=== PATIENT | female | born 2000 | race Caucasian/White ===

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

== ENCOUNTER 2018-01-22 15:19 | Emergency (ER) | payer OTHER ==
[~2018-01-22] VITALS: Ht 165.1 cm; Wt 90.7 kg
[~2018-01-22 15:19] MED LIST changes: +IBUPROFEN 800800 MG PO
[2018-01-22 16:15] LABS: URINE BILIRUBIN NEGATIVE (Negative); URINE BLOOD TRACE (Negative); URINE CLARITY CLEAR; URINE COLOR YELLOW; URINE GLUCOSE-RANDOM NEGATIVE (Negative); URINE KETONES NEGATIVE (Negative); URINE LEUKOCYTES-REFLEX TRACE (Negative); URINE NITRITE-REFLEX NEGATIVE (Negative); URINE PROTEIN NEGATIVE (Negative); URINE UROBILINOGEN 0.2 E.U./dl (0.2-1.0)
[2018-01-22 16:26] LABS: BACTERIA-REFLEX 1-9 Few /HPF (None Seen); CASTS None Seen /LPF (None Seen); MUCUS None Seen strn/LPF (None Seen); SQUAMOUS 0-3 Few /LPF (0-3); URINE RBC None Seen /HPF (0-2); URINE WBC-REFLEX 0-5 Rare /HPF (0-5)
[2018-01-22 17:18] LABS: ABSOLUTE LYMPHOCYTES 1.6 thou/uL (0.8-5.3); ABSOLUTE MONOCYTES 0.5 thou/uL (0.0-1.2); ABSOLUTE NEUTROPHILS 6.5 thou/uL (1.6-8.1); BASOPHILS 0.4 %; EOSINOPHILS 0.4 %; HEMATOCRIT 39.3 % (37.0-47.0); HEMOGLOBIN 12.6 gm/dL (12.0-15.0); LYMPHOCYTES 18.8 %; MCH 25.2 pg (26.0-34.0); MCHC 32.1 g/dL (28.0-37.0); MCV 78.5 fL (80.0-100.0); MONOCYTES 5.5 %; MPV 8.6 fl. (7.2-11.1); NUCLEATED RBCS 0 /100WBC; PLATELET COUNT* 276 thou/uL (150-400); POLYS 74.9 %; RBC 5.01 mil/uL (4.20-5.00); RDW-CV 15.3 % (10.5-14.5); WBC 8.7 thou/uL (4.0-11.0)
[2018-01-22 17:23] LABS: CALCIUM 8.9 mg/dL (8.5-10.1); CREATININE 0.8 mg/dL (0.6-1.3); POTASSIUM 4.1 mmol/L (3.5-5.1)
[2018-01-22 17:28] LABS: ALBUMIN 3.2 g/dL (3.4-5.0); TOTAL BILIRUBIN 0.4 mg/dL (<0.1-1.0); TOTAL PROTEIN 7.2 g/dL (6.4-8.2)
[2018-01-22] MEDS ORDERED: BACTRIM DS TAB1 EACH PO (18:09)
[2018-01-22 18:20] VITALS: BP 121/75
== END 2018-01-22 18:21 | disposition home or self-care (01) ==
LOC: M.ERS 15:19
PROVIDERS: Nurse Practitioner Family
DX: N30.90 Cystitis, unspecified without hematuria (principal)

== ENCOUNTER 2018-07-21 19:59 | Emergency (ER) | payer OTHER ==
[~2018-07-21] VITALS: Ht 165.1 cm; Wt 86.2 kg
[~2018-07-21 19:59] MED LIST changes: +BACTRIM DS TAB1 EACH PO
[2018-07-21 20:48] LABS: ABSOLUTE LYMPHOCYTES 1.7 thou/uL (0.8-5.3); ABSOLUTE MONOCYTES 0.6 thou/uL (0.0-1.2); ABSOLUTE NEUTROPHILS 4.5 thou/uL (1.6-8.1); BASOPHILS 0.6 %; EOSINOPHILS 0.6 %; HEMATOCRIT 36.7 % (37.0-47.0); HEMOGLOBIN 12.2 gm/dL (12.0-15.0); LYMPHOCYTES 24.6 %; MCH 25.9 pg (26.0-34.0); MCHC 33.3 g/dL (28.0-37.0); MCV 77.8 fL (80.0-100.0); MONOCYTES 8.3 %; MPV 8.8 fl. (7.2-11.1); NUCLEATED RBCS 0 /100WBC; PLATELET COUNT* 226 thou/uL (150-400); POLYS 65.9 %; RBC 4.72 mil/uL (4.20-5.00); RDW-CV 14.8 % (10.5-14.5); WBC 6.8 thou/uL (4.0-11.0)
[2018-07-21 20:55] LABS: URINE BILIRUBIN NEGATIVE (Negative); URINE BLOOD NEGATIVE (Negative); URINE CLARITY CLEAR; URINE COLOR YELLOW; URINE GLUCOSE-RANDOM NEGATIVE (Negative); URINE KETONES 1+ (Negative); URINE LEUKOCYTES-REFLEX NEGATIVE (Negative); URINE NITRITE-REFLEX NEGATIVE (Negative); URINE PROTEIN TRACE (Negative); URINE SPECIFIC GRAVITY 1.025 (1.005-1.030); URINE UROBILINOGEN 0.2 E.U./dl (0.2-1.0)
[2018-07-21 20:56] LABS: CREATININE 0.9 mg/dL (0.6-1.3); POTASSIUM 3.6 mmol/L (3.5-5.1)
[2018-07-21 21:00] LABS: ALBUMIN 3.5 g/dL (3.4-5.0); TOTAL BILIRUBIN 0.5 mg/dL (<0.1-1.0); TOTAL PROTEIN 7.3 g/dL (6.4-8.2)
[2018-07-21] MEDS ORDERED: ZOFRAN4 MG PO (22:57)
[2018-07-21] MEDS ORDERED: BENTYL 20 MG TA20 M1 PO (22:57)
[2018-07-21 23:08] VITALS: BP 109/65
== END 2018-07-21 23:17 | disposition home or self-care (01) ==
LOC: M.ERS 19:59
PROVIDERS: Nurse Practitioner Family
DX: K52.9 Noninfective gastroenteritis and colitis, unspecified (principal); R51 Headache

== ENCOUNTER 2018-09-28 22:05 | Emergency (ER) | payer OTHER ==
[~2018-09-28] VITALS: Ht 165.1 cm; Wt 86.2 kg
[~2018-09-28 22:05] MED LIST changes: +BENTYL 20 MG TA20 M1 PO; +ZOFRAN4 MG PO
[2018-09-28] MEDS ORDERED: PREDNISONE 10 M10 M1 PO (22:47)
[2018-09-28 23:04] VITALS: BP 154/97
== END 2018-09-28 23:04 | disposition home or self-care (01) ==
LOC: M.ERS 22:05
DX: L23.7 Allergic contact dermatitis due to plants, except food (principal); J02.9 Acute pharyngitis, unspecified

== ENCOUNTER 2018-10-23 23:05 | Emergency (ER) | payer OTHER ==
[~2018-10-23] VITALS: Ht 165.1 cm; Wt 83.9 kg
[2018-10-23] MEDS ORDERED: IRON325 PO (23:16)
[2018-10-23] MEDS ORDERED: ACETAMINOPHEN-1 EAC1 PO (23:59)
[2018-10-23] MEDS ORDERED: AMOX TR-K CLV1 EAC3 PO (23:59)
[2018-10-23] MEDS ORDERED: MAGIC MOUTHWASH PO (23:59)
[2018-10-24 00:15] VITALS: BP 117/82
[2018-10-25] MEDS ORDERED: HYDROCODONE-ACE15 ML PO (01:03)
== END 2018-10-24 00:15 | disposition home or self-care (01) ==
LOC: M.ERS 23:05
DX: J02.9 Acute pharyngitis, unspecified (principal)

== ENCOUNTER 2018-10-24 23:35 | Emergency (ER) | payer OTHER ==
[~2018-10-24] VITALS: Ht 165.1 cm; Wt 83.9 kg
[~2018-10-24 23:35] MED LIST changes: +AMOX TR-K CLV1 EAC3 PO; +MAGIC MOUTHWASH PO
[2018-10-25 00:07] LABS: HEMATOCRIT 40.2 % (37.0-47.0); HEMOGLOBIN 12.9 gm/dL (12.0-15.0); MCH 25.7 pg (26.0-34.0); MCHC 32.2 g/dL (28.0-37.0); MCV 79.8 fL (80.0-100.0); MPV 8.2 fl. (7.2-11.1); NUCLEATED RBCS 0 /100WBC; PLATELET COUNT* 259 thou/uL (150-400); RBC 5.03 mil/uL (4.20-5.00); RDW-CV 15.8 % (10.5-14.5); WBC 11.5 thou/uL (4.0-11.0)
[2018-10-25 00:14] LABS: CALCIUM 8.7 mg/dL (8.5-10.1); POTASSIUM 3.7 mmol/L (3.5-5.1)
[2018-10-25 00:19] LABS: ALBUMIN 2.9 g/dL (3.4-5.0); TOTAL BILIRUBIN 0.3 mg/dL (<0.1-1.0); TOTAL PROTEIN 7.7 g/dL (6.4-8.2)
[2018-10-25 00:38] LABS: ABSOLUTE LYMPHOCYTES 0.5 thou/uL (0.8-5.3); ABSOLUTE MONOCYTES 0.7 thou/uL (0.0-1.2); ABSOLUTE NEUTROPHILS 10.4 thou/uL (1.6-8.1)
[2018-10-25 00:39] LABS: PLATELET ESTIMATE ADEQUATE
[2018-10-25] MEDS ORDERED: HYDROCODONE-ACE15 ML PO (01:03)
[2018-10-25 01:20] VITALS: BP 115/71
== END 2018-10-25 01:20 | disposition home or self-care (01) ==
LOC: M.ERS 23:35
PROVIDERS: Personal Emergency Response Attendant
DX: J36 Peritonsillar abscess (principal); Z98.890 Other specified postprocedural states

== ENCOUNTER 2019-07-29 23:09 | Emergency (ER) | payer OTHER ==
[~2019-07-29] VITALS: Ht 170.2 cm; Wt 65.8 kg
[~2019-07-29 23:09] MED LIST changes: +HYDROCODONE-ACE15 ML PO
[2019-07-30 00:03] LABS: ABSOLUTE BASOPHILS 0.1 thou/uL (0.0-0.2); ABSOLUTE EOSINOPHILS 0.1 thou/uL (0.0-0.7); ABSOLUTE LYMPHOCYTES 2.1 thou/uL (0.8-5.3); ABSOLUTE NEUTROPHILS 10.6 thou/uL (1.6-8.1); BASOPHILS 0.4 %; EOSINOPHILS 0.4 %; HEMOGLOBIN 12.9 gm/dL (12.0-15.0); LYMPHOCYTES 15.2 %; MCH 27.5 pg (26.0-34.0); MCHC 33.2 g/dL (28.0-37.0); MCV 82.7 fL (80.0-100.0); MONOCYTES 7.4 %; MPV 8.9 fl. (7.2-11.1); NUCLEATED RBCS 0 /100WBC; PLATELET COUNT* 257 thou/uL (150-400); POLYS 76.6 %; RBC 4.71 mil/uL (4.20-5.00); RDW-CV 15.9 % (10.5-14.5); WBC 13.9 thou/uL (4.0-11.0)
[2019-07-30 00:13] LABS: URINE BILIRUBIN NEGATIVE (Negative); URINE BLOOD 1+ (Negative); URINE CLARITY CLEAR; URINE COLOR YELLOW; URINE GLUCOSE-RANDOM NEGATIVE (Negative); URINE KETONES NEGATIVE (Negative); URINE LEUKOCYTES-REFLEX NEGATIVE (Negative); URINE NITRITE-REFLEX NEGATIVE (Negative); URINE PROTEIN NEGATIVE (Negative); URINE SPECIFIC GRAVITY 1.015 (1.005-1.030); URINE UROBILINOGEN 0.2 E.U./dl (0.2-1.0)
[2019-07-30 00:17] LABS: CALCIUM 8.1 mg/dL (8.5-10.1); CREATININE 1.2 mg/dL (0.6-1.3); POTASSIUM 3.4 mmol/L (3.5-5.1)
[2019-07-30 00:21] LABS: ALBUMIN 2.9 g/dL (3.4-5.0); TOTAL BILIRUBIN 0.3 mg/dL (<0.1-1.0); TOTAL PROTEIN 6.8 g/dL (6.4-8.2)
[2019-07-30 00:45] LABS: CASTS None Seen /LPF (None Seen); SQUAMOUS >10 Many /LPF (0-3); URINE RBC 0-2 Rare /HPF (0-2); URINE WBC-REFLEX 0-5 Rare /HPF (0-5)
[2019-07-30 00:46] LABS: CRYSTALS None Seen /LPF (None Seen)
[2019-07-30] MEDS ORDERED: CIPROFLOXACIN500 M1 PO (01:07)
[2019-07-30] MEDS ORDERED: FLAGYL500 M1 PO (01:07)
[2019-07-30 01:16] VITALS: BP 132/74
== END 2019-07-30 01:16 | disposition home or self-care (01) ==
LOC: M.ERS 23:09
PROVIDERS: Family Medicine
DX: K52.9 Noninfective gastroenteritis and colitis, unspecified (principal); K62.5 Hemorrhage of anus and rectum

== ENCOUNTER 2019-11-09 02:48 | Emergency (ER) | payer OTHER ==
[~2019-11-09] VITALS: Ht 165.1 cm; Wt 90.7 kg
[~2019-11-09 02:48] MED LIST changes: +CIPROFLOXACIN500 M1 PO; +FLAGYL500 M1 PO
[2019-11-09 03:06] LABS: URINE BILIRUBIN NEGATIVE (Negative); URINE BLOOD NEGATIVE (Negative); URINE CLARITY CLEAR; URINE COLOR YELLOW; URINE GLUCOSE-RANDOM NEGATIVE (Negative); URINE KETONES NEGATIVE (Negative); URINE LEUKOCYTES-REFLEX TRACE (Negative); URINE NITRITE-REFLEX NEGATIVE (Negative); URINE PROTEIN NEGATIVE (Negative); URINE SPECIFIC GRAVITY 1.015 (1.005-1.030); URINE UROBILINOGEN 0.2 E.U./dl (0.2-1.0)
[2019-11-09 03:14] LABS: BACTERIA-REFLEX >30 Many /HPF (None Seen); CASTS None Seen /LPF (None Seen); CRYSTALS None Seen /LPF (None Seen); MUCUS 0-3 Light strn/LPF (None Seen); SQUAMOUS >10 Many /LPF (0-3); TRANSITIONAL EPITHEL CELL 0-3 Few /LPF (None Seen); URINE RBC 0-2 Rare /HPF (0-2); URINE WBC-REFLEX 6-15 Few /HPF (0-5)
[2019-11-09] MEDS ORDERED: PROTONIX40 MG PO (03:55)
[2019-11-09] MEDS ORDERED: CARAFATE 1 GM TA1 GM PO (03:55)
[2019-11-09 04:10] VITALS: BP 143/97
== END 2019-11-09 04:10 | disposition home or self-care (01) ==
LOC: M.ERS 02:48
PROVIDERS: Emergency Medicine
DX: K29.70 Gastritis, unspecified, without bleeding (principal)

== ENCOUNTER 2019-11-15 18:17 | Emergency (ER) | payer OTHER ==
[~2019-11-15] VITALS: Ht 165.1 cm; Wt 99.8 kg
[~2019-11-15 18:17] MED LIST changes: +CARAFATE 1 GM TA1 GM PO; +PROTONIX40 MG PO
[2019-11-15 19:46] VITALS: BP 141/94
== END 2019-11-15 19:47 | disposition left against medical advice (07) ==
LOC: M.ERS 18:17
DX: R21 Rash and other nonspecific skin eruption (principal); Z53.21 Procedure and treatment not carried out due to patient leaving prior to being seen by health care provider

== ENCOUNTER → 2019-12-28 | Outpatient (CLI) | payer OTHER | LOC: M.ULTRA 09:00 | PROVIDERS: ATTEND Nurse Practitioner Family | DX: N83.202 Unspecified ovarian cyst, left side (principal); N83.201 Unspecified ovarian cyst, right side; N83.8 Other noninflammatory disorders of ovary, fallopian tube and broad ligament ==

== ENCOUNTER 2020-04-28 01:58 | Emergency (ER) | payer OTHER ==
[~2020-04-28] VITALS: Ht 165.1 cm; Wt 90.7 kg
[2020-04-28 02:23] LABS: URINE BILIRUBIN NEGATIVE (Negative); URINE BLOOD NEGATIVE (Negative); URINE CLARITY CLEAR; URINE COLOR YELLOW; URINE GLUCOSE-RANDOM NEGATIVE (Negative); URINE KETONES NEGATIVE (Negative); URINE LEUKOCYTES-REFLEX 1+ (Negative); URINE NITRITE-REFLEX NEGATIVE (Negative); URINE PROTEIN NEGATIVE (Negative); URINE UROBILINOGEN 0.2 E.U./dl (0.2-1.0)
[2020-04-28 02:38] LABS: CASTS None Seen /LPF (None Seen); CRYSTALS None Seen /LPF (None Seen); MUCUS 4-6 Moderate strn/LPF (None Seen); SQUAMOUS 0-3 Few /LPF (0-3); URINE RBC 0-2 Rare /HPF (0-2); URINE WBC-REFLEX 0-5 Rare /HPF (0-5)
[2020-04-28 02:41] LABS: AMP/METHAMP Negative (Negative); BARBITURATES Negative (Negative); BENZODIAZEPINES Negative (Negative); COCAINE Negative (Negative); METHADONE Negative (Negative); OPIATES Negative (Negative); PCP Negative (Negative); THC POSITIVE (Negative)
[2020-04-28] MEDS ORDERED: FLAGYL500 M1 PO (02:53)
[2020-04-28 03:16] VITALS: BP 155/101
== END 2020-04-28 03:16 | disposition home or self-care (01) ==
LOC: M.ERS 01:58
PROVIDERS: Personal Emergency Response Attendant
DX: A59.01 Trichomonal vulvovaginitis (principal); Z79.899 Other long term (current) drug therapy

== ENCOUNTER 2020-08-09 18:14 | Emergency (ER) | payer OTHER ==
[~2020-08-09] VITALS: Ht 165.1 cm; Wt 97.5 kg
[2020-08-09 18:41] LABS: URINE BILIRUBIN NEGATIVE (Negative); URINE BLOOD TRACE (Negative); URINE CLARITY CLEAR; URINE COLOR YELLOW; URINE GLUCOSE-RANDOM NEGATIVE (Negative); URINE KETONES NEGATIVE (Negative); URINE LEUKOCYTES-REFLEX NEGATIVE (Negative); URINE NITRITE-REFLEX NEGATIVE (Negative); URINE PROTEIN NEGATIVE (Negative); URINE SPECIFIC GRAVITY 1.015 (1.005-1.030); URINE UROBILINOGEN 0.2 E.U./dl (0.2-1.0)
[2020-08-09 19:04] LABS: ABSOLUTE EOSINOPHILS 0.2 thou/uL (0.0-0.7); ABSOLUTE LYMPHOCYTES 1.6 thou/uL (0.8-5.3); ABSOLUTE MONOCYTES 0.5 thou/uL (0.0-1.2); ABSOLUTE NEUTROPHILS 6.4 thou/uL (1.6-8.1); BASOPHILS 0.5 %; EOSINOPHILS 1.8 %; HEMATOCRIT 43.4 % (37.0-47.0); HEMOGLOBIN 14.9 gm/dL (12.0-15.0); LYMPHOCYTES 18.7 %; MCH 29.6 pg (26.0-34.0); MCHC 34.2 g/dL (28.0-37.0); MCV 86.5 fL (80.0-100.0); MONOCYTES 6.2 %; MPV 8.5 fl. (7.2-11.1); NUCLEATED RBCS 0 /100WBC; PLATELET COUNT* 236 thou/uL (150-400); POLYS 72.8 %; RBC 5.02 mil/uL (4.20-5.00); RDW-CV 14.2 % (10.5-14.5); WBC 8.8 thou/uL (4.0-11.0)
[2020-08-09 19:19] LABS: CALCIUM 8.6 mg/dL (8.5-10.1); CREATININE 0.8 mg/dL (0.6-1.3)
[2020-08-09 19:24] LABS: ALBUMIN 3.7 g/dL (3.4-5.0); TOTAL BILIRUBIN 0.5 mg/dL (<0.1-1.0); TOTAL PROTEIN 7.8 g/dL (6.4-8.2)
[2020-08-09] MEDS ORDERED: ZOFRAN ODT4 MG PO (19:41)
[2020-08-09 20:05] VITALS: BP 135/75
== END 2020-08-09 20:06 | disposition home or self-care (01) ==
LOC: M.ERS 18:14
PROVIDERS: Nurse Practitioner Family
DX: R11.2 Nausea with vomiting, unspecified (principal)

== ENCOUNTER 2021-04-27 14:10 | Emergency (ER) | payer OTHER ==
[~2021-04-27] VITALS: Ht 165.1 cm; Wt 90.7 kg
[~2021-04-27 14:10] MED LIST changes: +ZOFRAN ODT4 MG PO
[2021-04-27 15:06] LABS: ABSOLUTE EOSINOPHILS 0.3 thou/uL (0.0-0.7); ABSOLUTE MONOCYTES 0.5 thou/uL (0.0-1.2); ABSOLUTE NEUTROPHILS 5.3 thou/uL (1.6-8.1); BASOPHILS 0.4 %; EOSINOPHILS 3.6 %; HEMATOCRIT 46.7 % (37.0-47.0); HEMOGLOBIN 15.6 gm/dL (12.0-15.0); LYMPHOCYTES 24.4 %; MCHC 33.3 g/dL (28.0-37.0); MONOCYTES 6.7 %; MPV 8.6 fl. (7.2-11.1); NUCLEATED RBCS 0 /100WBC; PLATELET COUNT* 256 thou/uL (150-400); POLYS 64.9 %; RBC 5.19 mil/uL (4.20-5.00); WBC 8.1 thou/uL (4.0-11.0)
[2021-04-27 15:16] LABS: CALCIUM 9.1 mg/dL (8.5-10.1); CREATININE 0.9 mg/dL (0.6-1.3); POTASSIUM 4.4 mmol/L (3.5-5.1)
[2021-04-27 15:21] LABS: ALBUMIN 3.8 g/dL (3.4-5.0); TOTAL BILIRUBIN 0.4 mg/dL (<0.1-1.0); TOTAL PROTEIN 7.8 g/dL (6.4-8.2)
[2021-04-27 16:27] VITALS: BP 153/106
--- NOTE | 2021-04-28 14:43 | EKG ---
[place] [address] ELECTROCARDIOGRAM REPORT Name: MERLY LIVINGSTON Room: [facility]#: [id number] Admission: 04/27/21 Attend Phys: Discharge: 04/27/21 Date of : [birth year] Date of Service: 04/27/21 1454 Report #: [id number] THIS REPORT FOR: //name// [facility] ED Test Date: 2021-04-27 Test Time: 14:54:15 Pat Name: MERLY LIVINGSTON Department: Room: Gender: Sports Book Writer: WATERS : 2000 Requested By: Tye Henrandez Order Number: [id number] MD: Richi Mejia Measurements Intervals [place] Rate: 62 P: 43 DC: 129 QRS: 56 QRSD: 86 T: 50 QT: 408 QTc: 415 Interpretive Statements Sinus arrhythmia Compared to ECG 12/16/2017 13:49:13 Sinus rhythm no longer present Electronically Signed On 04-28-2021 14:43:21 EDUCATIONAL TECHNOLOGIST by Richi Mejia [email or web address] <ELECTRONICALLY SIGNED> By: Richi Mejia MD, [facility] 04/28/21 1443 1454 1454 Richi Mejai MD, [facility] /EPI
== END 2021-04-27 16:27 | disposition home or self-care (01) ==
LOC: M.ERS 14:10
PROVIDERS: Physician Assistant Medical
DX: R11.2 Nausea with vomiting, unspecified (principal)